=== PATIENT | male | born 1965 | race Caucasian/White ===

== ENCOUNTER 2016-08-27 01:24 | Inpatient (IN) | payer OTHER ==
[2016-08-27] VITALS (7 sets, daily range): BP systolic 147–180; BP diastolic 70–90
[~2016-08-27] VITALS: Ht 175.2 cm; Wt 80.5 kg
--- NOTE | ~2016-08-27 | CON ---
[place], [place] REPORT OF CONSULTATION NAME: DANIEL NOEL [facility] #: [id number] UNIT #: [id number] ROOM: 416 DOCTOR: KENYA SAMPSON DPM BIRTHDATE: [birth year] DOS: 08/27/2016 SUBJECTIVE: The patient presents as a 51-year-old male with a chief complaint of loosening of the left great toenail with drainage. The patient had noticed it several days ago. The patient has also been followed with Dr. Griffin for peripheral arterial disease. PAST MEDICAL HISTORY: Peripheral arterial disease, diabetes with hyperglycemia without long-term current use of insulin, chest pain, hyperlipidemia, infected dental caries, tobacco abuse. PAST SURGICAL HISTORY: Arteriography, hand surgery, history of urethral stent, bilateral inguinal hernia repair, history of foot surgery, right foot. SOCIAL HISTORY: Denies alcohol or illicit drug use, history of smoking 2 packs daily of cigarettes for 30 years. FAMILY HISTORY: Father unknown to patient. Mother at age 60. ALLERGIES: No known allergies. PHYSICAL EXAMINATION: EXTREMITIES: Lower extremity examination, diminished pedal pulses, bilateral foot. Decreased hair growth, nail thickening, pigmentary discoloration, mild edema, bilateral. Skin temperature changes with coolness of both feet, crumbly thickened yellow nails 1 through 5 bilateral foot. Results of separation of the left hallux nail plate. Upon total nail avulsion of the left hallux nail plate, there is a small tiny sinus tract noted to distal subungual nail bed. There is serous drainage noted, which was cultured. NEUROLOGICAL: Decreased epicritic sensations bilateral with peripheral neuropathy. DIAGNOSTIC DATA: Radiographs were reviewed and although the report appeared negative, review of the radiographs myself revealed possible erosion of the distal phalanx, which may be consistent with osteomyelitis correlating with the small sinus tract to the distal hallux. There is no underlying abscess or purulent drainage. ASSESSMENT: Diabetes with diabetic peripheral neuropathy, onychomycosis, bilateral, paronychia, left hallux with possible underlying osteomyelitis, peripheral vascular disease. PLAN: Evaluation and management. Debrided nails bilateral foot, performed total nail avulsion of the left hallux nail plate without anesthesia due to the patient's neuropathy. Cultured the serous drainage from the distal subungual nail. The patient already had a consultation request for Infectious Disease, which was ordered. Ordered an MRI of the left foot to rule out osteomyelitis of the left hallux, ordered Bactroban dressing to be applied daily and the patient will be seen tomorrow by Dr. Lo for followup. I do not think the patient needs surgical intervention at this time as there is no abscess. Maybe a [place], [place] REPORT OF CONSULTATION NAME: DANIEL NOEL UNIT #: [id number] ROOM: 416 DOCTOR: KENYA SAMPSON DPM BIRTHDATE: [birth year] chronic osteomyelitis of the distal phalanx, which may need the IV antibiotic treatment, but we will follow the patient accordingly. Due to the patient's vascular insufficiency, I would not recommend aggressive treatment at this time. Again, the patient will be seen tomorrow for followup. Thank you for kind consultation. KENYA SAMSPON DPM CM:CONSTR:REPORT OF CONSULTATION 1323 10/07/16 1426 interface
--- NOTE | ~2016-08-27 | PR ---
[place], [place] PROGRESS NOTE NAME: DANIEL NOEL [facility] #: [id number] UNIT #: [id number] ROOM: 416 DOCTOR: CAMILLA SOMMERSKENYA St BIRTHDATE: [birth year] DOS: 08/29/2016 SUBJECTIVE: The patient is seen for followup of post-abscess of the left great toe. The patient feels no acute pain at this time. The patient had an MRI, which revealed evidence of osteomyelitis. The patient's IVs were stopped as Infectious Disease had thought we would perform a bone biopsy; however, the patient's vascular exam revealed evidence of occlusion of the mid left SFA and significant disease in the distal right SFA with diminished monophasic waveforms. Therefore, Dr. Lo said in his note from yesterday, we defer surgical intervention due to the risk of necrosis of the distal toe due to vascular insufficiency. I spoke with Dr. Lo via telephone and we concurred that the patient will be best treated with IV antibiotics treatment without surgical intervention and to have the vascular intervention performed by Dr. Griffin. OBJECTIVE: The sinus tract was close of the dorsal nail bed. There is decreased erythema, decreased edema. Again, the results of the patient's MRI of the left foot revealed cellulitis of the great toe with acute osteomyelitis and osseous destruction of the distal phalanx, soft tissue swelling without abscess. ASSESSMENT: Osteomyelitis, distal phalanx, first left toe. PLAN: Evaluation and management discussed with the patient extensively, the risk of performing an open bone biopsy that the distal toe could necrose and he could lose the distal aspect of the toe or the toe itself. Discussed with the patient that I agreed with Dr. Lo's assessment from yesterday that the patient is best served at this point due to the risks and complications of being treated with IV antibiotics. The Infectious Disease and the patient having a vascular intervention performed by Dr. Griffin for more surgical intervention to the toes needed at that time. After vascular intervention, it can be performed. Discussed also with Internal Medicine. They can resume the IV antibiotics and we will follow the patient accordingly if he is still in-house over the next couple of days. Clinically the toe is doing great and again at this point, I would defer surgical intervention due to vascular impairment, lack of pedal pulses and occlusion noted on the arterial exam of the left SFA. The patient can continue local wound care, continue IV antibiotics per Infectious Disease and Internal Medicine and we will help with the patient on a continuing ongoing basis if need be, but from at this point, the patient in my opinion is best served with treatment of the osteomyelitis with IV antibiotics, obviously bone cultures with bone biopsy would be the preferred course of treatment; however, again due to the risk of necrosis of the toe due to vascular impairment, we will defer this at this time. Discussed the case again with Dr. Lo, who is in agreement also. [place], [place] PROGRESS NOTE NAME: BERTDANIEL Itz UNIT #: [id number] ROOM: 416 DOCTOR: KENYA SAMPSON DPM BIRTHDATE: [birth year] KENYA SAMPSON DPM CM:YAJAIRA [id number] KENYA SAMPSON DPM 08/30/16 0125 interface
--- NOTE | ~2016-08-27 | PR ---
[place], [place] PROGRESS NOTE NAME: DANIEL NOEL UNIT #: [id number] ROOM: 416 DOCTOR: JOHNATHAN DODDRADHAPADMINI BIRTHDATE: [birth year] DOS: 08/30/2016 REASON FOR FOLLOWUP: Acute osteomyelitis. SUBJECTIVE: The patient is feeling better. No fever, hemodynamically stable. Tolerating antibiotics, which were started early this morning. PHYSICAL EXAMINATION: VITAL SIGNS: Showed temperature of 97.7, heart rate of 80, blood pressure of 134/54, respiratory rate of 20, pulse ox of 96 on room air. GENERAL APPEARANCE: Awake, alert, oriented to time, place and person. No acute distress. HEENT: Oral cavity moist and intact. NECK: Supple, no JVD, no lymphadenopathy. HEART: Regular rate and rhythm. S1, S2 normal. No murmurs, gallops or rubs. LUNGS: Clear to auscultation bilaterally. ABDOMEN: Soft, nontender, nondistended. Bowel sounds heard. EXTREMITIES: Warm to touch. Pedal pulses palpated. Phlebolith on the left hand, none on the right. MEDICATIONS: Reviewed. REVIEW OF SYSTEMS: Otherwise negative unless otherwise specified in the HPI, still has a lot of pain in both legs. LABORATORY DATA: Reviewed. WBC of 9, hemoglobin of 12.2, platelets were 292. Chemistry showing BUN of 24, creatinine of 1.10. Sed rate not available. C-reactive protein 0.42. Microbiology reviewed. Wound culture showing Staph aureus MRSA. ASSESSMENT AND PLAN: Acute osteomyelitis of the left big toe from MRSA, complicated by peripheral arterial disease with poor circulation. Podiatry not planning any biopsies secondary to concerns about healing. He is awaiting vascular followup with Dr. Griffin. He has MRI findings confirming acute osteomyelitis and wound cultures superficial showing MRSA. We would therefore put him on IV vancomycin for 6 weeks. Followup sed rate, CRP, CBC with diff, BMP weekly and fax the results of the same to my office at phone number [phone], fax number [phone]. Follow up with myself in 4 weeks' time. Okay to discharge home on IV antibiotics, to rehabilitation on IV vancomycin from my standpoint. Follow up with me in 4 weeks' time. [place], [place] PROGRESS NOTE NAME: DANIEL NOEL UNIT #: [id number] ROOM: [facility] DOCTOR: NA MANN MD BIRTHDATE: [birth year] NA MANN MD CM:PNTRANS [id number] NA MANN MD 10/07/16 1424 interface
--- NOTE | ~2016-08-27 | PR ---
[place], [place] PROGRESS NOTE [id number] UNIT #: [id number] ROOM: 416 DOCTOR: ALVINO BOWER DPM BIRTHDATE: [birth year] DOS: 08/28/2016 SUBJECTIVE: The patient is seen today for followup of PAD as well as ulcer on his left great toe and osteomyelitis. Apparently, MRI was positive for osteomyelitis. The patient does complain of claudication symptoms that he walks short distance, he gets cramping in both legs to the point where he has to sit down. He gets rest pain at night in bed, burning in his feet and legs as well as cramping. He has to get up and sit in a chair. The patient has a longstanding history of smoking and he is diabetic as well. OBJECTIVE: Upon lower extremity examination, pedal pulses are not palpable, they are nonpalpable. There is no hair growth from the mid-calf distally. There is pigment changes, discoloration, pallor upon elevation, rubor upon dependency. The left great toe has a small wound present with no necrotic or gangrenous tissue. Minimal edema and erythema. No expressible drainage. No abscess. Sensation is diminished bilaterally. MRI was positive for osteomyelitis. His vascular studies showed diminished monophasic flow from the calf distally with an occluded SFA. ASSESSMENT: Significant peripheral artery disease with claudication and rest pain; diabetic ulcer, left great toe, with osteomyelitis. PLAN: E and M; I discussed with the patient the need for vascular intervention before any surgical procedure could be performed on the toe. Apparently, Dr. Griffin was contacted, and he stated that it was in an emergency and to treat the infection in the toe first. I would think we would want to restore blood before we do any surgical procedure on the great toe. He does have osteomyelitis, but again to make an incision and remove bone from the toe would be contraindicated because of the decreased arterial flow. I will discuss the case with Dr. Saravia and see how we will proceed, but right now, I recommend conservative management with IV antibiotics at this time and no surgical intervention because of peripheral arterial disease that is symptomatic. [place], [place] PROGRESS NOTE [facility] [id number] UNIT #: [id number] ROOM: 416 DOCTOR: ALVINO BOWER DPM BIRTHDATE: [birth year] ALVINO BOWER DPM CM:YAJAIRA [id number] ALVINO BOWER DPM 08/29/16 1114 interface
[~2016-08-27 01:24] MED LIST: AMOXICILLIN500 MG PO; ASPIRIN ADULT L81 M2 PO; ASPIRIN81 M1 PO; BACTROBAN OINT22 GM PO; FLEXERIL10 MG PO; FLOMAX0.4 MG PO; GABAPENTIN300 MG PO; GABAPENTIN600 MG PO; HYDROCODONE BIT1 T11 PO; LIPITOR10 MG PO; LIPITOR20 MG PO; LOMOTIL 0.025 M1 TA1 PO; METFORMIN1000 MG PO; MOTRIN800 MG PO; NKHM; NORCO 325 MG-51 TAB PO; PEN-VEE K500 MG PO; PENICILLIN VK500 MG PO; PLAVIX75 MG PO; PREDNICOT20 MG PO; SILVADENE,SSD C50 GM PO; TRAMADOL HCL50 MG PO; VICODIN 5/500 505 MG PO; ZOFRAN ODT4 MG SL
[2016-08-27] MEDS ORDERED: GLIMEPIRIDE4 M1 PO (01:39)
[2016-08-27] MEDS ORDERED: HYDROCODONE BIT1 T20 PO (01:39)
[2016-08-27] MEDS ORDERED: ROPINIROLE HYD0.5 MG PO (01:40)
[2016-08-27 02:47] LABS: BASO # 0.1 10*3/uL (0.0-0.1); BASO % 0.6 % (0.0-1.0); EOS # 0.2 10*3/uL (0.0-0.4); EOS % 1.3 % (1.0-4.0); HEMATOCRIT 40.5 % (42.0-52.0); HEMOGLOBIN 12.5 g/dl (14.0-18.0); IG # 0.1 10*3/uL (0.0-0.1); LYMPH # 2.9 10*3/uL (1.3-4.4); LYMPH % 20.4 % (27.0-41.0); MEAN CORPUSCULAR HGB CONC 30.9 g/dl (33.0-37.0); MEAN PLATELET VOLUME 10.6 fl (9.6-12.3); MONO # 1.3 10*3/uL (0.1-1.0); MONO % 8.9 % (3.0-9.0); NEUT # 9.7 10*3/uL (2.3-7.9); NEUT % 68.3 % (47.0-73.0); PLATELET COUNT AUTOMATED 317 10*3/uL (130-400); RED BLOOD COUNT 4.31 10*6/uL (4.50-5.90); RED CELL DISTRI WIDTH 14.3 % (0-14.5); WHITE BLOOD COUNT 14.3 10*3/uL (4.8-10.8)
[2016-08-27 02:56] LABS: PROTHROMBIN TIME 10.3 SECONDS (9.0-12.4)
[2016-08-27 03:05] LABS: ALBUMIN 3.6 gm/dl (3.1-4.5); ALKALINE PHOSPHATASE 118 U/L (45-117); BILIRUBIN, TOTAL 0.2 mg/dl (0.2-1.0); BUN 25 mg/dl (7-24); CARBON DIOXIDE 29 mmol/L (21-32); CHLORIDE 106 mmol/L (98-107); EST GLOM FILT AFRICAN AMERICAN > 60 ml/min; GLUCOSE 78 mg/dL (65-99); POTASSIUM 4.4 mmol/L (3.5-5.1); SGOT/AST 26 IU/L (3-35); SGPT/ALT 41 U/L (12-78); SODIUM 143 mmol/L (136-145); TOTAL PROTEIN 7.5 gm/dL (6.4-8.2)
[2016-08-27] MEDS ORDERED: AMITRIPTYLINE10 MG PO (03:59)
[2016-08-27] MEDS ORDERED: AMITRIPTYLINE25 MG PO (04:01)
[2016-08-27 04:44] LABS: BILIRUBIN NEGATIVE (NEGATIVE); BLOOD TRACE-INTACT (NEGATIVE); CLARITY CLEAR (CLEAR); COLOR YELLOW (YELLOW); GLUCOSE NEGATIVE (NEGATIVE); KETONE NEGATIVE (NEGATIVE); LEUKO ESTERASE NEGATIVE (NEGATIVE); NITRITE NEGATIVE (NEGATIVE); PROTEIN NEGATIVE (NEGATIVE)
[2016-08-27 04:50] LABS: URINE REFLEX COMMENT NO (NO)
[2016-08-27 07:57] LABS: FREE T4 0.86 ng/dl (0.76-1.46); THYROID STIM HORMONE (HS) 1.11 uIU/ml (0.358-4.75)
[2016-08-27 08:42] LABS: HEMOGLOBIN A1c 7.7 % (4.8-5.6)
[2016-08-27 09:10] LABS: FOLIC ACID 9.14 ng/mL (>5.38)
[2016-08-28] VITALS: BP 142/77
[2016-08-28 06:02] LABS: ALBUMIN 3.1 gm/dl (3.1-4.5); ALKALINE PHOSPHATASE 102 U/L (45-117); BILIRUBIN, TOTAL 0.2 mg/dl (0.2-1.0); BUN 16 mg/dl (7-24); CARBON DIOXIDE 28 mmol/L (21-32); CHLORIDE 107 mmol/L (98-107); EST GLOM FILT AFRICAN AMERICAN > 60 ml/min; GLUCOSE 103 mg/dL (65-99); POTASSIUM 4.4 mmol/L (3.5-5.1); SGOT/AST 14 IU/L (3-35); SGPT/ALT 28 U/L (12-78); SODIUM 143 mmol/L (136-145)
[2016-08-28 06:14] LABS: BASO # 0.1 10*3/uL (0.0-0.1); BASO % 0.6 % (0.0-1.0); EOS # 0.3 10*3/uL (0.0-0.4); EOS % 2.6 % (1.0-4.0); HEMATOCRIT 39.6 % (42.0-52.0); HEMOGLOBIN 12.6 g/dl (14.0-18.0); LYMPH # 3.2 10*3/uL (1.3-4.4); LYMPH % 33.4 % (27.0-41.0); MEAN CELL VOLUME 92.5 fl (80.0-94.0); MEAN CORPUSCULAR HGB 29.4 pg (27.0-31.0); MEAN CORPUSCULAR HGB CONC 31.8 g/dl (33.0-37.0); MEAN PLATELET VOLUME 11.1 fl (9.6-12.3); MONO % 10.4 % (3.0-9.0); NEUT % 52.6 % (47.0-73.0); PLATELET COUNT AUTOMATED 304 10*3/uL (130-400); RED BLOOD COUNT 4.28 10*6/uL (4.50-5.90); RED CELL DISTRI WIDTH 14.3 % (0-14.5); WHITE BLOOD COUNT 9.5 10*3/uL (4.8-10.8)
[2016-08-28 06:28] LABS: INTERNATIONAL NORM RATIO 0.9 (2.0-3.5)
[2016-08-28 08:00] VITALS: BP 166/72
[2016-08-28 12:00] VITALS: BP 152/88
[2016-08-28 16:00] VITALS: BP 130/78
[2016-08-28 20:00] VITALS: BP 141/82
[2016-08-29] VITALS: BP 125/81
[2016-08-29 06:04] LABS: BASO # 0.1 10*3/uL (0.0-0.1); BASO % 0.7 % (0.0-1.0); BUN 24 mg/dl (7-24); CARBON DIOXIDE 27 mmol/L (21-32); CHLORIDE 106 mmol/L (98-107); EOS # 0.2 10*3/uL (0.0-0.4); EOS % 2.5 % (1.0-4.0); EST GLOM FILT AFRICAN AMERICAN > 60 ml/min; GLUCOSE 65 mg/dL (65-99); HEMATOCRIT 38.3 % (42.0-52.0); HEMOGLOBIN 12.2 g/dl (14.0-18.0); LYMPH # 3.4 10*3/uL (1.3-4.4); LYMPH % 37.4 % (27.0-41.0); MEAN CELL VOLUME 93.2 fl (80.0-94.0); MEAN CORPUSCULAR HGB 29.7 pg (27.0-31.0); MEAN CORPUSCULAR HGB CONC 31.9 g/dl (33.0-37.0); MEAN PLATELET VOLUME 10.7 fl (9.6-12.3); MONO # 0.8 10*3/uL (0.1-1.0); MONO % 8.5 % (3.0-9.0); NEUT # 4.6 10*3/uL (2.3-7.9); NEUT % 50.6 % (47.0-73.0); PLATELET COUNT AUTOMATED 292 10*3/uL (130-400); POTASSIUM 4.7 mmol/L (3.5-5.1); RED BLOOD COUNT 4.11 10*6/uL (4.50-5.90); RED CELL DISTRI WIDTH 14.1 % (0-14.5); SODIUM 141 mmol/L (136-145)
[2016-08-29 08:00] VITALS: BP 146/73
[2016-08-29 12:00] VITALS: BP 135/60
[2016-08-29 16:00] VITALS: BP 134/54
[2016-08-29 20:00] VITALS: BP 148/70
[2016-08-30] VITALS: BP 148/77
[2016-08-30 08:00] VITALS: BP 160/82
[2016-08-30 12:00] VITALS: BP 164/72
[2016-08-30 16:00] VITALS: BP 144/69
[2016-08-30 20:00] VITALS: BP 145/70
[2016-08-31] VITALS: BP 140/85
[2016-08-31 08:00] VITALS: BP 140/85
[2016-08-31 12:00] VITALS: BP 165/80
[2016-08-31] MEDS ORDERED: VANCO 1.51.5 GM/250 IV (15:40)
[2016-08-31 16:00] VITALS: BP 184/68
[2016-09-13] MEDS ORDERED: PERCOCET 325 MG1 TA2 PO (05:28)
== END 2016-08-31 19:06 | disposition home or self-care (01) | DRG 872 ==
LOC: ED 01:24 → 4E 03:10 → EDHOLD 03:10 → 4E 04:09
PROVIDERS: Emergency Medicine Emergency Medical Services; Hospitalist; Student in an Organized Health Care Education/Training Program
PROC: 02HV33Z Insertion of Infusion Device into Superior Vena Cava, Percutaneous Approach (ICD-10-PCS; principal; 2016-08-31)
DX: A41.9 Sepsis, unspecified organism (principal); E11.51 Type 2 diabetes mellitus with diabetic peripheral angiopathy without gangrene; E11.69 Type 2 diabetes mellitus with other specified complication; E44.0 Moderate protein-calorie malnutrition; E11.65 Type 2 diabetes mellitus with hyperglycemia; M86.172 Other acute osteomyelitis, left ankle and foot; B35.1 Tinea unguium; D64.9 Anemia, unspecified; L03.032 Cellulitis of left toe; E78.5 Hyperlipidemia, unspecified; F17.200 Nicotine dependence, unspecified, uncomplicated; Z68.26 Body mass index [BMI] 26.0-26.9, adult; Z98.890 Other specified postprocedural states; Z84.89 Family history of other specified conditions; Z79.82 Long term (current) use of aspirin

== ENCOUNTER 2016-11-23 10:29 | Inpatient (IN) | payer OTHER ==
[~2016-11-23] VITALS: Ht 175.2 cm; Wt 84.4 kg
[~2016-11-23 10:29] MED LIST changes: +AMITRIPTYLINE10 MG PO; +AMITRIPTYLINE25 MG PO; +GLIMEPIRIDE4 M1 PO; +HYDROCODONE BIT1 T20 PO; +PERCOCET 325 MG1 TA2 PO; +ROPINIROLE HYD0.5 MG PO; +VANCO 1.51.5 GM/250 IV
[2016-11-23 10:34] VITALS: BP 143/72
[2016-11-23 11:01] LABS: BASO # 0.1 10*3/uL (0.0-0.1); BASO % 0.5 % (0.0-1.0); EOS # 0.2 10*3/uL (0.0-0.4); EOS % 1.3 % (1.0-4.0); HEMATOCRIT 42.1 % (42.0-52.0); HEMOGLOBIN 13.6 g/dl (14.0-18.0); IG # 0.1 10*3/uL (0.0-0.1); LYMPH # 2.3 10*3/uL (1.3-4.4); LYMPH % 16.1 % (27.0-41.0); MEAN CELL VOLUME 91.7 fl (80.0-94.0); MEAN CORPUSCULAR HGB 29.6 pg (27.0-31.0); MEAN CORPUSCULAR HGB CONC 32.3 g/dl (33.0-37.0); MEAN PLATELET VOLUME 10.1 fl (9.6-12.3); MONO # 0.9 10*3/uL (0.1-1.0); MONO % 6.5 % (3.0-9.0); NEUT # 10.7 10*3/uL (2.3-7.9); NEUT % 75.1 % (47.0-73.0); PLATELET COUNT AUTOMATED 364 10*3/uL (130-400); RED BLOOD COUNT 4.59 10*6/uL (4.50-5.90); RED CELL DISTRI WIDTH 13.8 % (0-14.5); WHITE BLOOD COUNT 14.3 10*3/uL (4.8-10.8)
[2016-11-23 11:15] LABS: ALBUMIN 3.6 gm/dl (3.1-4.5); ALKALINE PHOSPHATASE 118 U/L (45-117); BILIRUBIN, TOTAL 0.2 mg/dl (0.2-1.0); BUN 16 mg/dl (7-24); CARBON DIOXIDE 28 mmol/L (21-32); CHLORIDE 102 mmol/L (98-107); EST GLOM FILT AFRICAN AMERICAN > 60 ml/min; GLUCOSE 161 mg/dL (65-99); POTASSIUM 4.4 mmol/L (3.5-5.1); SGOT/AST 21 IU/L (3-35); SGPT/ALT 29 U/L (12-78); SODIUM 140 mmol/L (136-145); TOTAL PROTEIN 7.9 gm/dL (6.4-8.2)
[2016-11-23 11:18] LABS: BILIRUBIN NEGATIVE (NEGATIVE); BLOOD TRACE-INTACT (NEGATIVE); CLARITY SL CLOUDY (CLEAR); COLOR YELLOW (YELLOW); GLUCOSE TRACE (NEGATIVE); KETONE TRACE (NEGATIVE); LEUKO ESTERASE 1+ (NEGATIVE); NITRITE NEGATIVE (NEGATIVE); PROTEIN 1+ (NEGATIVE); SPECIFIC GRAVITY 1.025 (1.005-1.030); UROBILINOGEN 0.2 E.U./dl (0.2-1.0)
[2016-11-23 11:23] LABS: WBC 31-40 wbc/hpf (0-5)
[2016-11-23 11:24] LABS: BACTERIA 2+; URINE REFLEX COMMENT YES (NO)
[2016-11-23 11:30] VITALS: BP 151/74
[2016-11-23 11:31] LABS: URINE AMPHETAMINES < 1000 (1000ng/ml); URINE BARBITURATES < 200 (200ng/ml); URINE COCAINE < 300 (300ng/ml)
[2016-11-23] MEDS ORDERED: LIPITOR80 MG PO (11:56)
[2016-11-23 16:20] VITALS: BP 114/59
[2016-11-23] MEDS ORDERED: LISINOPRIL10 M1 PO (16:50)
[2016-11-23 20:00] VITALS: BP 160/75
[2016-11-24] VITALS: BP 122/63
[2016-11-24 08:00] VITALS: BP 147/83
[2016-11-24 12:00] VITALS: BP 170/74
[2016-11-24 16:00] VITALS: BP 161/71; BP 167/79
[2016-11-24 18:00] VITALS: BP 150/70
[2016-11-24 20:00] VITALS: BP 163/79
[2016-11-25] VITALS: BP 174/82
[2016-11-25 06:29] LABS: BASO # 0.1 10*3/uL (0.0-0.1); BASO % 0.8 % (0.0-1.0); EOS # 0.3 10*3/uL (0.0-0.4); EOS % 2.8 % (1.0-4.0); HEMATOCRIT 37.5 % (42.0-52.0); HEMOGLOBIN 11.9 g/dl (14.0-18.0); LYMPH # 2.8 10*3/uL (1.3-4.4); LYMPH % 31.6 % (27.0-41.0); MEAN CELL VOLUME 93.5 fl (80.0-94.0); MEAN CORPUSCULAR HGB 29.7 pg (27.0-31.0); MEAN CORPUSCULAR HGB CONC 31.7 g/dl (33.0-37.0); MEAN PLATELET VOLUME 10.5 fl (9.6-12.3); MONO # 0.7 10*3/uL (0.1-1.0); MONO % 7.5 % (3.0-9.0); NEUT # 5.1 10*3/uL (2.3-7.9); PLATELET COUNT AUTOMATED 293 10*3/uL (130-400); RED BLOOD COUNT 4.01 10*6/uL (4.50-5.90); RED CELL DISTRI WIDTH 13.4 % (0-14.5); WHITE BLOOD COUNT 8.9 10*3/uL (4.8-10.8)
[2016-11-25 06:46] LABS: BUN 12 mg/dl (7-24); CARBON DIOXIDE 26 mmol/L (21-32); CHLORIDE 109 mmol/L (98-107); EST GLOM FILT AFRICAN AMERICAN > 60 ml/min; GLUCOSE 139 mg/dL (65-99); POTASSIUM 4.2 mmol/L (3.5-5.1); SODIUM 141 mmol/L (136-145)
[2016-11-25 08:00] VITALS: BP 156/90
[2016-11-25 12:00] VITALS: BP 170/74
[2016-11-25 16:00] VITALS: BP 151/74
[2016-11-25 20:00] VITALS: BP 161/86
[2016-11-26 06:14] LABS: BASO # 0.1 10*3/uL (0.0-0.1); BASO % 0.7 % (0.0-1.0); EOS # 0.3 10*3/uL (0.0-0.4); EOS % 3.6 % (1.0-4.0); HEMATOCRIT 40.5 % (42.0-52.0); HEMOGLOBIN 12.4 g/dl (14.0-18.0); LYMPH # 2.6 10*3/uL (1.3-4.4); LYMPH % 32.4 % (27.0-41.0); MEAN CELL VOLUME 95.5 fl (80.0-94.0); MEAN CORPUSCULAR HGB 29.2 pg (27.0-31.0); MEAN CORPUSCULAR HGB CONC 30.6 g/dl (33.0-37.0); MEAN PLATELET VOLUME 10.7 fl (9.6-12.3); MONO # 0.7 10*3/uL (0.1-1.0); MONO % 8.8 % (3.0-9.0); NEUT # 4.4 10*3/uL (2.3-7.9); NEUT % 54.1 % (47.0-73.0); PLATELET COUNT AUTOMATED 296 10*3/uL (130-400); RED BLOOD COUNT 4.24 10*6/uL (4.50-5.90); RED CELL DISTRI WIDTH 13.4 % (0-14.5); WHITE BLOOD COUNT 8.2 10*3/uL (4.8-10.8)
[2016-11-26 06:46] LABS: CHLORIDE 108 mmol/L (98-107); POTASSIUM 5.1 mmol/L (3.5-5.1); SODIUM 144 mmol/L (136-145)
[2016-11-26 06:50] LABS: BUN 15 mg/dl (7-24); CARBON DIOXIDE 29 mmol/L (21-32); EST GLOM FILT AFRICAN AMERICAN > 60 ml/min; GLUCOSE 129 mg/dL (65-99)
[2016-11-26 08:00] VITALS: BP 120/88
[2016-11-26] MEDS ORDERED: CARBIDOPA/LEVOD1 TA1 PO (10:49)
[2016-11-26] MEDS ORDERED: ATARAX,VISTARIL50 MG PO (10:49)
[2016-11-26 12:00] VITALS: BP 133/80
[2016-11-26] MEDS ORDERED: CIPRO500 MG PO (12:20)
== END 2016-11-26 12:17 | disposition home or self-care (01) | DRG 871 ==
LOC: ED 10:29 → 5E 11:05 → EDHOLD 11:05 → 5E 11:18
PROVIDERS: Internal Medicine; Nurse Practitioner Family
DX: A41.9 Sepsis, unspecified organism (principal); N17.0 Acute kidney failure with tubular necrosis; N39.0 Urinary tract infection, site not specified; F11.23 Opioid dependence with withdrawal; R65.20 Severe sepsis without septic shock; E11.42 Type 2 diabetes mellitus with diabetic polyneuropathy; E11.65 Type 2 diabetes mellitus with hyperglycemia; E11.51 Type 2 diabetes mellitus with diabetic peripheral angiopathy without gangrene; E78.5 Hyperlipidemia, unspecified; Z87.891 Personal history of nicotine dependence; Z71.6 Tobacco abuse counseling; F19.10 Other psychoactive substance abuse, uncomplicated

== ENCOUNTER 2017-01-08 18:23 | Inpatient (IN) | payer OTHER ==
[~2017-01-08] VITALS: Ht 175.2 cm; Wt 87.5 kg
[~2017-01-08 18:23] MED LIST changes: +ATARAX,VISTARIL50 MG PO; +CARBIDOPA/LEVOD1 TA1 PO; +CIPRO500 MG PO; +LIPITOR80 MG PO; +LISINOPRIL10 M1 PO
[2017-01-08 18:33] VITALS: BP 195/95
[2017-01-08 19:07] LABS: BASO # 0.1 10*3/uL (0.0-0.1); BASO % 0.4 % (0.0-1.0); EOS # 0.3 10*3/uL (0.0-0.4); EOS % 2.1 % (1.0-4.0); HEMATOCRIT 35.5 % (42.0-52.0); HEMOGLOBIN 11.2 g/dl (14.0-18.0); LYMPH # 2.4 10*3/uL (1.3-4.4); LYMPH % 20.1 % (27.0-41.0); MEAN CELL VOLUME 92.4 fl (80.0-94.0); MEAN CORPUSCULAR HGB 29.2 pg (27.0-31.0); MEAN CORPUSCULAR HGB CONC 31.5 g/dl (33.0-37.0); MEAN PLATELET VOLUME 10.6 fl (9.6-12.3); MONO # 0.7 10*3/uL (0.1-1.0); MONO % 5.6 % (3.0-9.0); NEUT # 8.7 10*3/uL (2.3-7.9); NEUT % 71.5 % (47.0-73.0); PLATELET COUNT AUTOMATED 286 10*3/uL (130-400); RED BLOOD COUNT 3.84 10*6/uL (4.50-5.90); RED CELL DISTRI WIDTH 13.5 % (0-14.5); WHITE BLOOD COUNT 12.1 10*3/uL (4.8-10.8)
[2017-01-08 19:17] LABS: INTERNATIONAL NORM RATIO 0.9 (2.0-3.5)
[2017-01-08 19:31] LABS: ALBUMIN 3.1 gm/dl (3.1-4.5); ALKALINE PHOSPHATASE 113 U/L (45-117); BILIRUBIN, TOTAL 0.1 mg/dl (0.2-1.0); BUN 13 mg/dl (7-24); CARBON DIOXIDE 29 mmol/L (21-32); CHLORIDE 102 mmol/L (98-107); EST GLOM FILT AFRICAN AMERICAN > 60 ml/min; GLUCOSE 189 mg/dL (65-99); POTASSIUM 3.6 mmol/L (3.5-5.1); SGOT/AST 46 IU/L (3-35); SGPT/ALT 50 U/L (12-78); SODIUM 140 mmol/L (136-145)
[2017-01-08 19:39] LABS: TROPONIN I 0.155 ng/ml (<0.045)
[2017-01-08 19:54] VITALS: BP 172/92
[2017-01-08 21:12] VITALS: BP 165/90
[2017-01-08 21:21] VITALS: BP 158/86
[2017-01-08 23:30] VITALS: BP 170/82; BP 170/84
[2017-01-09] VITALS: BP 114/51; BP 175/82
[2017-01-09 06:49] LABS: BASO % 0.3 % (0.0-1.0); EOS # 0.3 10*3/uL (0.0-0.4); EOS % 2.1 % (1.0-4.0); HEMATOCRIT 33.1 % (42.0-52.0); HEMOGLOBIN 10.5 g/dl (14.0-18.0); LYMPH % 25.5 % (27.0-41.0); MEAN CELL VOLUME 91.2 fl (80.0-94.0); MEAN CORPUSCULAR HGB 28.9 pg (27.0-31.0); MEAN CORPUSCULAR HGB CONC 31.7 g/dl (33.0-37.0); MEAN PLATELET VOLUME 11.6 fl (9.6-12.3); MONO # 0.9 10*3/uL (0.1-1.0); MONO % 7.2 % (3.0-9.0); NEUT # 7.6 10*3/uL (2.3-7.9); NEUT % 64.6 % (47.0-73.0); PLATELET COUNT AUTOMATED 270 10*3/uL (130-400); RED BLOOD COUNT 3.63 10*6/uL (4.50-5.90); RED CELL DISTRI WIDTH 13.5 % (0-14.5); WHITE BLOOD COUNT 11.8 10*3/uL (4.8-10.8)
[2017-01-09 07:28] LABS: BUN 11 mg/dl (7-24); CARBON DIOXIDE 29 mmol/L (21-32); CHLORIDE 104 mmol/L (98-107); CHOLESTEROL 139 mg/dL (<200); EST GLOM FILT AFRICAN AMERICAN > 60 ml/min; GLUCOSE 113 mg/dL (65-99); MAGNESIUM 1.8 mg/dL (1.5-2.1); PHOSPHOROUS 2.2 mg/dL (2.5-4.9); POTASSIUM 3.9 mmol/L (3.5-5.1); SODIUM 140 mmol/L (136-145); TRIGLYCERIDES 123 mg/dl (<150); VLDL CHOLESTEROL 25 mg/dL (6-40)
[2017-01-09 07:29] LABS: HDL CHOLESTEROL 40 mg/dl (40-60); LDL CHOLESTEROL 74 mg/dL (9-159)
[2017-01-09 08:00] VITALS: BP 170/78
[2017-01-09 08:44] LABS: VITAMIN D, 25-HYDROXY 29.2 ng/mL (30-100)
[2017-01-09 08:45] LABS: FOLIC ACID 16.07 ng/mL (>5.38)
[2017-01-09 12:00] VITALS: BP 172/86
== END 2017-01-09 13:58 | disposition short-term general hospital (02) | DRG 300 ==
LOC: ED 18:23 → EDHOLD 22:18 → 5E 22:46
PROVIDERS: Internal Medicine; Nurse Practitioner Family
DX: E11.51 Type 2 diabetes mellitus with diabetic peripheral angiopathy without gangrene (principal); E44.1 Mild protein-calorie malnutrition; E11.42 Type 2 diabetes mellitus with diabetic polyneuropathy; E11.65 Type 2 diabetes mellitus with hyperglycemia; L03.116 Cellulitis of left lower limb; E78.5 Hyperlipidemia, unspecified; F17.210 Nicotine dependence, cigarettes, uncomplicated; I99.8 Other disorder of circulatory system; D72.829 Elevated white blood cell count, unspecified; A48.8 Other specified bacterial diseases; E55.9 Vitamin D deficiency, unspecified; Z79.82 Long term (current) use of aspirin; Z71.6 Tobacco abuse counseling; Z79.84 Long term (current) use of oral hypoglycemic drugs; Z68.28 Body mass index [BMI] 28.0-28.9, adult

== ENCOUNTER → 2017-01-30 | Emergency (ER) | payer OTHER ==
[~2017-01-30] VITALS: Ht 177.8 cm; Wt 74.8 kg
== END ==
LOC: ED 10:32
DX: I46.9 Cardiac arrest, cause unspecified (principal); F17.200 Nicotine dependence, unspecified, uncomplicated; E11.65 Type 2 diabetes mellitus with hyperglycemia; E78.5 Hyperlipidemia, unspecified; Z79.82 Long term (current) use of aspirin